=== PATIENT | female | born 1955 | race Caucasian/White ===

== ENCOUNTER 2017-06-20 09:37 | Emergency (ER) | payer BC ==
[~2017-06-20] VITALS: Ht 157.5 cm; Wt 98.2 kg
[~2017-06-20 09:37] MED LIST: FLEXERIL10 MG PO; LOTRIMIN ULTRA12 GM TP; MOTRIN800 MG PO
[2017-06-20 10:37] LABS: HEMATOCRIT 37.6 % (36.0-46.0); MCH 30.3 PG (29.0-34.0); MCHC 33.8 G/DL (30.0-36.0); MCV 89.7 FL (83-99); MEAN PLAT.VOLUME 9.7 uM^3 (9.5-12.4); PLATELET COUNT 294 K/uL (156-360); RBC DIS.WIDTH-CV 12.9 % (11.8-14.6); RBC DIS.WIDTH-SD 42.4 % (39-53); RED BLOOD COUNT 4.19 M/uL (3.80-5.20); WHITE BLOOD COUNT 6.7 K/uL (4.1-10.2)
[2017-06-20 11:00] LABS: TROP-I INTERPRETATION NEGATIVE; TROPONIN-I < 0.01 ng/mL (0.0-0.30)
[2017-06-20 11:15] LABS: CHLORIDE 109 mEq/L (99-109); POTASSIUM 4.1 mEq/L (3.7-5.4); SODIUM 142 mEq/L (136-147)
[2017-06-20 11:17] LABS: GLUCOSE 104 mg/dL (70-99)
[2017-06-20 11:19] LABS: ANION GAP 12 MEQ/L (2-14)
[2017-06-20 11:21] LABS: GFR ESTIMATE (CALCULATED) > 59 mL/min/
[2017-06-20 11:22] LABS: UREA NITROGEN (BUN) 17 mg/dL (9-23)
[2017-06-20 12:26] VITALS: BP 126/81
== END 2017-06-20 12:27 | disposition home or self-care (01) ==
LOC: EME 09:37
DX: R00.2 Palpitations (principal)
CPT/HCPCS: 71020; 80048; 84484; 85027; 93005; 99281; 99284